=== PATIENT | female | born 1935 | race Caucasian/White ===

== ENCOUNTER 2018-08-12 11:54 | Emergency (ER) | payer MEDICARE, OTHER ==
[~2018-08-12] VITALS: Ht 172.7 cm; Wt 65.8 kg
[2018-08-12] MEDS ORDERED: NAMENDA XR28 MG PO (12:09)
[2018-08-12] MEDS ORDERED: XARELTO20 MG PO (12:10)
[2018-08-12] MEDS ORDERED: ESCI10 PO (12:10)
[2018-08-12] MEDS ORDERED: METO25ER PO (12:10)
[2018-08-12 12:41] LABS: BASOPHILS ABSOLUTE AUTO 0.03 K/mm3 (0.00-0.23); BASOPHILS PERCENT AUTO 1 % (0-2); EOSINOPHILS ABSOLUTE AUTO 0.14 K/mm3 (0.00-0.68); EOSINOPHILS PERCENT AUTO 3 % (0-6); Hematocrit 39.8 % (33.0-51.0); Hemoglobin 12.8 g/dL (11.5-16.0); IMMATURE GRAN ABSOLUTE AUTO 0.03 K/mm3 (0.00-0.10); IMMATURE GRAN PERCENT AUTO 1 % (0-1); LYMPHOCYTES ABSOLUTE AUTO 1.04 K/mm3 (0.84-5.20); LYMPHOCYTES PERCENT AUTO 21 % (21-46); MONOCYTES PERCENT AUTO 12 % (4-13); Mean Corpuscular HGB 28.6 pg (26.0-34.0); Mean Corpuscular HGB Conc 32.2 g/dL (31.5-36.5); Mean Corpuscular Volume 89 fL (80-100); Mean Platelet Volume 10.9 fL (9.1-12.4); NEUTROPHILS ABSOLUTE AUTO 3.02 K/mm3 (1.96-9.15); NEUTROPHILS PERCENT AUTO 62 % (41-73); Platelet Count 205 K/mm3 (150-400); RDW Coefficient Variation 13.8 % (11.7-14.2); Red Blood Cell Count 4.48 M/mm3 (3.80-5.20); White Blood Cell Count 4.86 K/mm3 (4.00-11.30)
[2018-08-12 13:01] LABS: Alanine Aminotransfer (ALT/SGP 24 U/L (12-78); Albumin, Blood 3.4 g/dL (3.4-5.0); Albumin/Globulin Ratio 1.1 (0.8-1.8); Alk Phos 85 U/L (50-136); Anion Gap 6 mmol/L (6-16); Aspartate Aminotrans (AST/SGOT 18 U/L (12-37); Bilirubin, Total 0.4 mg/dL (0.1-1.0); Blood Urea Nitrogen 16 mg/dL (8-24); Bun/Creatinine Ratio 16.3 (12.0-20.0); CO2, Blood 29 mmol/L (21-32); Calcium, Blood 8.5 mg/dL (8.5-10.1); Chloride, Blood 110 mmol/L (98-108); Creatinine, Blood 0.98 mg/dL (0.40-1.00); Glomerular Filtration Rate 57 (60-); Glucose, Blood 88 mg/dL (70-99); Sodium, Blood 145 mmol/L (136-145); Total Protein, Blood 6.4 g/dL (6.4-8.2); Troponin I <0.015 ng/mL (0.000-0.040)
[2018-08-12 13:56] LABS: Appearance, Urine Clear (Clear); Bilirubin, Urine Neg (Neg); Blood, Urine 1+ (Neg); Color, Urine Yellow (P-Yellow); Glucose Qualitative, Urine Neg (Neg); Ketones, Urine Neg (Neg); Leukocyte Esterase, Urine 1+ (Neg); Nitrite, Urine Neg (Neg); Protein, Urine Neg (Neg); Specific Gravity, Urine 1.015 (1.003-1.022); Urobilinogen, Urine NORM (Normal)
[2018-08-12 14:09] LABS: Bacteria Rare /hpf; Red Blood Cells, Urine 0-2 /hpf (0-2); Squamous Epithelial Cells Rare /hpf (Few)
[2018-08-12] MEDS ORDERED: Bactrim Ds Tab1 EACH PO (14:11)
== END 2018-08-12 14:36 | disposition home or self-care (01) ==
LOC: ER 11:54
PROVIDERS: Emergency Medicine; Internal Medicine
DX: R55 Syncope and collapse (principal); N39.0 Urinary tract infection, site not specified; I48.91 Unspecified atrial fibrillation; E86.0 Dehydration; F03.90 Unspecified dementia, unspecified severity, without behavioral disturbance, psychotic disturbance, mood disturbance, and anxiety; Z79.899 Other long term (current) drug therapy
CPT/HCPCS: 71046; 80053; 81001; 84484; 85025; 87086; 93005; 93010; 96360; 99284-25; J7030

== ENCOUNTER → 2018-11-20 | Outpatient (CLI) | payer MEDICARE, OTHER ==
[~2018-11-20] MED LIST: Bactrim Ds Tab1 EACH PO; ESCI10 PO; MEMA10 PO; METO25ER PO; NAMENDA XR28 MG PO; XARELTO20 MG PO
== END | disposition home or self-care (01) ==
LOC: LAB SHORT 11:55 → LAB 11:55
DX: R30.0 Dysuria (principal)
CPT/HCPCS: 87086

== ENCOUNTER 2019-07-20 12:36 | Emergency (ER) | payer MEDICARE, OTHER ==
[~2019-07-20] VITALS: Ht 172.7 cm; Wt 70.8 kg
[2019-07-20 13:15] LABS: BASOPHILS ABSOLUTE AUTO 0.02 K/mm3 (0.00-0.23); BASOPHILS PERCENT AUTO 1 % (0-2); EOSINOPHILS ABSOLUTE AUTO 0.07 K/mm3 (0.00-0.68); EOSINOPHILS PERCENT AUTO 2 % (0-6); Hematocrit 40.6 % (33.0-51.0); IMMATURE GRAN ABSOLUTE AUTO 0.01 K/mm3 (0.00-0.10); IMMATURE GRAN PERCENT AUTO 0 % (0-1); LYMPHOCYTES ABSOLUTE AUTO 1.03 K/mm3 (0.84-5.20); LYMPHOCYTES PERCENT AUTO 25 % (21-46); MONOCYTES ABSOLUTE AUTO 0.41 K/mm3 (0.16-1.47); MONOCYTES PERCENT AUTO 10 % (4-13); Mean Corpuscular HGB 28.3 pg (26.0-34.0); Mean Corpuscular Volume 89 fL (80-100); NEUTROPHILS ABSOLUTE AUTO 2.57 K/mm3 (1.96-9.15); NEUTROPHILS PERCENT AUTO 63 % (41-73); Platelet Count 192 K/mm3 (150-400); RDW Coefficient Variation 13.8 % (11.7-14.2); RDW Standard Deviation 44.8 fL (35.1-46.3); Red Blood Cell Count 4.59 M/mm3 (3.80-5.20); White Blood Cell Count 4.11 K/mm3 (4.00-11.30)
[2019-07-20 13:35] LABS: Alanine Aminotransfer (ALT/SGP 18 U/L (12-78); Albumin, Blood 3.7 g/dL (3.4-5.0); Albumin/Globulin Ratio 1.2 (0.8-1.8); Alk Phos 120 U/L (50-136); Anion Gap 8 mmol/L (6-16); Aspartate Aminotrans (AST/SGOT 15 U/L (12-37); Bilirubin, Total 0.5 mg/dL (0.1-1.0); Blood Urea Nitrogen 21 mg/dL (8-24); CO2, Blood 27 mmol/L (21-32); Calcium, Blood 8.6 mg/dL (8.5-10.1); Chloride, Blood 106 mmol/L (98-108); Creatinine, Blood 0.78 mg/dL (0.40-1.00); Glomerular Filtration Rate >60 (60-); Glucose, Blood 116 mg/dL (70-99); Sodium, Blood 141 mmol/L (136-145); Total Protein, Blood 6.7 g/dL (6.4-8.2)
[2019-07-20] MEDS ORDERED: DULO30 PO (13:41)
[2019-07-20 14:19] LABS: Source, Urine Clean Catch
[2019-07-20 14:26] LABS: Appearance, Urine Clear (Clear); Bilirubin, Urine Neg (Neg); Blood, Urine 1+ (Neg); Color, Urine Yellow (P-Yellow); Glucose Qualitative, Urine Neg (Neg); Ketones, Urine 1+ (Neg); Leukocyte Esterase, Urine Neg (Neg); Nitrite, Urine Neg (Neg); Protein, Urine Neg (Neg); Urobilinogen, Urine NORM (Normal); pH, Urine 6.5 (5.0-8.0)
[2019-07-20 14:35] LABS: Bacteria Mod /hpf; Red Blood Cells, Urine 0-2 /hpf (0-2); Squamous Epithelial Cells Rare /hpf (Few); White Blood Cells, Urine 0-2 /hpf (0-5)
== END 2019-07-20 15:11 | disposition home or self-care (01) ==
LOC: ER 12:36
PROVIDERS: Physician Assistant
DX: R55 Syncope and collapse (principal); E86.9 Volume depletion, unspecified; I48.2 Chronic atrial fibrillation; F03.90 Unspecified dementia, unspecified severity, without behavioral disturbance, psychotic disturbance, mood disturbance, and anxiety; Z79.899 Other long term (current) drug therapy
CPT/HCPCS: 36415; 70450; 80053; 81001; 84484; 85025; 87086; 93005; 93010; 99284-25; J7120; P9612

== ENCOUNTER → 2024-07-10 | Outpatient (CLI) | payer MEDICARE, OTHER ==
[~2024-07-10] MED LIST changes: +DULO30 PO
[2024-07-10 12:18] LABS: Source, Urine Voided
[2024-07-10 13:19] LABS: Appearance, Urine Clear (Clear); Bilirubin, Urine Neg (Neg); Blood, Urine Neg (Neg); Color, Urine Yellow (P-Yellow); Glucose Qualitative, Urine Neg (Neg); Ketones, Urine Neg (Neg); Leukocyte Esterase, Urine 3+ (Neg); Nitrite, Urine Neg (Neg); Protein, Urine 1+ (Neg); Specific Gravity, Urine 1.015 (1.003-1.022); Urobilinogen, Urine NORM (Normal)
[2024-07-10 13:37] LABS: Bacteria Few /hpf; Red Blood Cells, Urine 0-2 /hpf (0-2); Squamous Epithelial Cells Few /hpf (Few)
== END ==
LOC: LAB 12:13 → LAB SHORT 12:13
PROVIDERS: Family Medicine
DX: N39.0 Urinary tract infection, site not specified (principal)
CPT/HCPCS: 81001; 87086

== ENCOUNTER 2024-08-13 08:03 | Observation (INO) | payer MEDICARE, OTHER ==
[~2024-08-13] VITALS: Ht 165.1 cm; Wt 56.0 kg
[2024-08-13 08:19] LABS: BASOPHILS ABSOLUTE AUTO 0.04 K/mm3 (0.00-0.23); BASOPHILS PERCENT AUTO 1 % (0-2); EOSINOPHILS ABSOLUTE AUTO 0.23 K/mm3 (0.00-0.68); EOSINOPHILS PERCENT AUTO 4 % (0-6); Hematocrit 41.1 % (33.0-51.0); Hemoglobin 13.4 g/dL (11.5-16.0); IMMATURE GRAN ABSOLUTE AUTO 0.02 K/mm3 (0.00-0.10); IMMATURE GRAN PERCENT AUTO 0 % (0-1); LYMPHOCYTES ABSOLUTE AUTO 1.67 K/mm3 (0.84-5.20); LYMPHOCYTES PERCENT AUTO 30 % (21-46); MONOCYTES ABSOLUTE AUTO 0.71 K/mm3 (0.16-1.47); MONOCYTES PERCENT AUTO 13 % (4-13); Mean Corpuscular HGB 28.9 pg (26.0-34.0); Mean Corpuscular HGB Conc 32.6 g/dL (31.5-36.5); Mean Corpuscular Volume 89 fL (80-100); Mean Platelet Volume 11.6 fL (9.1-12.4); NEUTROPHILS ABSOLUTE AUTO 2.86 K/mm3 (1.96-9.15); NEUTROPHILS PERCENT AUTO 52 % (41-73); Platelet Count 192 K/mm3 (150-400); RDW Coefficient Variation 14.6 % (11.7-14.2); RDW Standard Deviation 48.3 fL (35.1-46.3); Red Blood Cell Count 4.64 M/mm3 (3.80-5.20); White Blood Cell Count 5.53 K/mm3 (4.00-11.30)
[2024-08-13 08:34] LABS: International Normalized Ratio 1.03
[2024-08-13 09:10] LABS: Albumin, Blood 3.4 g/dL (3.4-5.0); Albumin/Globulin Ratio 1.1 (0.8-1.8); Bilirubin, Total 0.6 mg/dL (0.1-1.0); Bun/Creatinine Ratio 24.5 (12.0-20.0); Calcium, Blood 8.7 mg/dL (8.5-10.1); Creatinine, Blood 0.82 mg/dL (0.40-1.00); Globulin, Blood 3.1 g/dL (2.2-4.0); Total Protein, Blood 6.5 g/dL (6.4-8.2)
[2024-08-13] MEDS ORDERED: LORazepam 2 MG/ML 1ML Injection IV ONE (09:30)
[2024-08-13] MEDS ORDERED: Magnesium Hydroxide Conc 10 ML UDC PO PRN (10:05)
[2024-08-13] MEDS ORDERED: Acetaminophen 325 MG TABLET PO PRN (10:05)
[2024-08-13] MEDS ORDERED: FLU VACC TS2024-25(6MOS UP)/PF 45 MCG/0.5 ML SYRINGE IM SCH (10:05)
[2024-08-13] MEDS ORDERED: Ondansetron HCl 2 MG / ML 2ML Vial IV PRN (10:05)
[2024-08-13] MEDS ORDERED: NS 1,000 ML IV SCH (10:05)
[2024-08-13 12:18] VITALS: BP 140/100
[2024-08-13] MEDS ORDERED: LORazepam 2 MG/ML 1ML Injection IV PRN ×2 (12:25→14:40)
--- NOTE | 2024-08-13 13:59 | NUR ---
PHYSICIAN CONTACT: ESTEFANY FROM TELE CALLED @ [id number] STATING PT IS HAVING RUNS OF POLYMORPHIC VTACH. CALLED AND SPOKE WITH DR. RONDON TO MAKE AWARE.
--- NOTE | 2024-08-13 14:11 | NUR ---
PRIMARY RN ASKED THIS PC RN TO SEE PT D/T AGGITATION, LACK OF GAG REFLEX AND STOKE SYMPTOMS. MESSAGES LEFT FOR PT'S SON AND DIL.
[2024-08-13] MEDS ORDERED: Seroquel25 MG PO (14:22)
[2024-08-13] MEDS ORDERED: Promethazine HCl 25 MG Supp PR PRN (14:40)
[2024-08-13] MEDS ORDERED: Scopolamine Hydrobromide Patch TOP PRN (14:40)
[2024-08-13] MEDS ORDERED: Acetaminophen 650 MG Supp PR PRN (14:40)
[2024-08-13] MEDS ORDERED: Morphine Sulfate 20 MG/1ML 1 ML Oral Syringe SL PRN (14:40)
[2024-08-13] MEDS ORDERED: Atropine Sulfate 1% Opth Soln 2ML BTL SL PRN (14:40)
[2024-08-13] MEDS ORDERED: Haloperidol Lactate Inj. 5 MG/ML Injection IV PRN (14:40)
--- NOTE | 2024-08-13 14:52 | NUR ---
START COMFORT CARE NOW PT LIKES TO BE ADDRESSED "MIKAYLA". THIS PC RN SPOKE WITH FAMILY (SON/MERLIN) BY PHONE. BOTH OF WHOM ARE IN AGREEMENT TO CHANGE PT'S GOALS OF CARE TO COMFORT. COMFORT CARE ORDERS RCV'D BY . ORDERS PLACED ACCORDINGLY. PRIMARY RN AND BROACH TROUBLE SHOOTER NOTIFIED. VIKRAM BOYER IS ON HER WAY BACK TO THE HOSPITAL. SONRAMYA IS STRUGGLING WITH PT'S PENDING MORTALITY. PT'S SPOUSE PASSED 2 MONTHS AGO. OFFERED A BELT CUTTER VISIT TO FAMILY. THE WERE VERY WELCOMING AND ASKED FOR BELT CUTTER SISSY BY NAME HE IS KNOWN TO THE FAMILY. PC TO REMAIN AVAILABLE.
--- NOTE | 2024-08-13 16:31 | NUR ---
"SPiritual Care | Comfort Care visit. Pt. is on comfort care and is mostly not responsive. Daughter and granddaughter are at bedside and are familiar with this sander and buffer from when the Pts. passed earlier in the summer. Pastoral care and prayer is given for both the Pt. and family. Facilitated lengthy life reviews. Pts. nurse arrived to get her cleaned up. This sander and buffer steped out but will remain available to the Pt. and family."
--- NOTE | 2024-08-13 17:19 | NUR ---
PATIENT ADMITTED TODAY FOR CVA. R SIDE FLACCID WITH R FACIAL DROOP. PATIENT NOVERABL AND DOES NOT TRACK WITH HER EYES. TRANSITIONED TO COMFORT MEASURES THIS AFTERNOON. FAMILY AT BEDSIDE AND ARE VERY SUPPORTIVE. PALLIATIVE CARE AND CANVAS WORKER JUAN CARLOS AT BEDSIDE TO VISIT WITH FAMILY WELL. ATIVAN GIVEN X2 TODAY FOR AGITATION WITH GOOD RELIEF.
--- NOTE | 2024-08-13 18:36 | NUR ---
"Spiritual Care Visit | Comfort Care - EOL Decisions Pt. is on comfort care. Pts. daughter and granddaughter are present. Facilitated conversation about end of life decision for the Pt. The family has chosen [facility] as the home when the Pt. passes."
[2024-08-13] MEDS ORDERED: Famotidine 10 MG/ML 2ML Vial IV SCH (21:00)
--- NOTE | 2024-08-14 06:30 | NUR ---
WARES SORTER SUMMARY ABLE TO MAINTAIN PT COMFORT WITH CURRENT AVAILABLE INTERVENTIONS. WHEN HER LORAZEPAM AND ROXANOL WEAR OFF SHE MOANS, GRIMACES AND STARTS TO FIDGET. HER FAMILY WENT HOME TO SLEEP. LISET PLACED FOR COMFORT. PT TURNED AND MOUTH MOISTURIZED EVERY 2 HOURS.
[2024-08-14] MEDS ORDERED: Aspirin 81 MG Chew PO SCH (09:00)
[2024-08-14] MEDS ORDERED: Clopidogrel Bisulfate 75 MG Tab PO SCH (09:00)
[2024-08-14] MEDS ORDERED: Enoxaparin 40 MG/0.4 ML SYR SC SCH (09:00)
--- NOTE | 2024-08-14 10:25 | NUR ---
CALLED AND GAVE UPDATE TO PATIENT'S DAUGHTER AILYN
--- NOTE | 2024-08-14 11:20 | NUR ---
"Spiritual Care Visit | Comfort Care Pt. is on comfort care and is mostly non-responsive. No family members are present. Prayed for the Pt. Will remain available to the family as the Pt. continues to transition."
--- NOTE | 2024-08-14 18:06 | NUR ---
SHIFT SUMMARY: PATIENT HAS REMAINED NON REPONSIVE; DOES NOT OPEN HER EYES OR SPEAK. WHEN SHE BECOMES RESTLESS SHE WILL MOAN AND SQUIRM AND BRING HER LEFT EXTREMITY UP TO HER FACE. RESPOSITIONING PATIENT EVERY 2 HOURS, PROVIDING ORAL CARE, AND MEDICATING NEEDED FOR COMFORT. PATIENT DOES NOT APPEAR IMMENENT AND NOT OBTUNDED. THE [facility] CAME BY AND SAW THE PATIENT TODAY AND SAID THAT THEY WOULD TAKE HER BACK [facility]. POSSIBLE D/C TOMORROW 08/15/24. PLAN OF CARE ONGOING.
--- NOTE | 2024-08-15 05:51 | NUR ---
SHIFT SUMMARY: Pt admitted for CVA and is a DNR. has been unresponsive during shift. Is on comfort care. ADLs have been 2p. Have not noted any SX of pain. Have been given medication for some air hunger. Folly in place and draining clear yellow urine.
--- NOTE | 2024-08-15 10:57 | NUR ---
PATIENT'S DAUGHTER VIKRAM CALLED; GAVE HER AN UPDATE ON THE PATIENT. NO CHANGES WITH PATIENT CONDITIONS AT THIS TIME. VIKRAM EXPRESSED CONCERNS WITH THE PATIENT RETURNING TO [facility] DUE TO LACK OF CARE SHE WAS GETTING PRIOR TO THIS HOSPITAL STAY AND THAT SHE FEELS THAT THE PATIENT IS GETTING BETTER CARE HERE. VIKRAM HAD ASKED THIS RN IF I WAS INCREASING HER SEDATIVES. I LET VIKRAM KNOW THAT I AM MEDICATING THE PATIENT NEEDED WITH WHAT IS ORDERED BASED OFF MY ASSESSMENT AND OBSERVATIONS ON PATIENT'S CONDITION. VIKRAM VOICES UNDERSTANDING. SHE REQUEST TO SPEAK WITH NURSE BALANCE SHEET ANALYST GABRIELA. GABRIELA NOTIFIED TO CONTACT VIKRAM.
--- NOTE | 2024-08-15 15:54 | NUR ---
ASSESSED PATIENTS COMFORT. SHE WAS SLEEPING IN BED DISCUSSED WITH BEDSIDE RN. PATIENT HAS BEEN REQUIRING REGULAR DOSES OF ROXANOL. SHE WAS ASLEEP AND DIFFICULT TO ARROUSE DURING MY ASSESSMENT. SHE APPEARED COMFORTABLE AT THIS TIME. FLACC SCALE 3-4 AT THIS TIME. SHE IS COOL TO THE TOUCH.
--- NOTE | 2024-08-15 16:44 | NUR ---
"Spiritual Care | Comfort care follow up. Pt. is on comfoart care and is not responsive. The Pt. displays evidence of lingering during this transition phase. There are no family present. Prayed for the Pt. Will continue to support Pt. and family."
--- NOTE | 2024-08-15 17:53 | NUR ---
SHIFT SUMMARY: PATIENT'S CHEEKS ARE MORE FLUSHES AND BREATHING MOIST AND RATTLED. OTHERWISE NO CHANGES WITH PATIENT; GIVEN MEDICATIONS NEEDED. PENDING DISCHARGE TO [facility]. PLAN OF CARE ONGOING.
--- NOTE | 2024-08-16 11:50 | NUR ---
"Spiritual Care | Comfort Care Check-in Pt. is on comfort care. The Staff are giving the Pt. a bath. Pt. displays evidence of wet breaths. Will remain available to Pt. and nursing staff."
--- NOTE | 2024-08-16 12:38 | NUR ---
"Spiritual Care | Palliative Nurse request Pt. is alone on comfort care and does not meaningfully respond to my presence. Nurse Arielle requested spiritual care for the Pt. whose time seems near. Scripture is read, and blessings are given. Will remain available to the Pt. and family."
--- NOTE | 2024-08-16 14:33 | NUR ---
"Spiritual Care | Family at bedside Pt. is on comfort care and displays evidence of continued transitioning. MERLIN Bean is at bedside and displays evidence of emotion and concern for the Pts. condition. Normalized the Pt. and family experience. Updated the MERLIN on observations from earlier in the day. MERLIN said her goodbyes and verbalized that she did not intend to return. After the visit I updated nurse Amelia who will notify this electrical tester should the Pt. pass."
--- NOTE | 2024-08-16 15:11 | NUR ---
PT PASSED UPON ENTERING THE PTS ROOM AT 1510 IT WAS NOTICED THAT THE PT WAS . CHARGE NURSE ANN-MARIE WAS CALLED AND VERIFIED THE . DR. GREWAL WAS NOTIFIED
--- NOTE | 2024-08-16 15:26 | NUR ---
"Spiritual Care| EOL This shop tailor visited Pt. upon being notified of the Pts. passing. This shop tailor will follow up the visit with a pastoral call to family."
== END 2024-08-16 15:10 ==
LOC: ER 08:03 → MEDS 08:04 → ER 11:55 → MEDS 12:00 → ENPENDDIS 08-16 12:17 → MEDS 08-16 15:10
PROVIDERS: Emergency Medicine; ADMIT Family Medicine
DX: I63.9 Cerebral infarction, unspecified (principal); G30.9 Alzheimer's disease, unspecified; F02.80 Dementia in other diseases classified elsewhere, unspecified severity, without behavioral disturbance, psychotic disturbance, mood disturbance, and anxiety; I10 Essential (primary) hypertension; I48.91 Unspecified atrial fibrillation; E78.5 Hyperlipidemia, unspecified; F32.A Depression, unspecified; M54.16 Radiculopathy, lumbar region; M81.0 Age-related osteoporosis without current pathological fracture; H54.7 Unspecified visual loss; M85.80 Other specified disorders of bone density and structure, unspecified site; M16.10 Unilateral primary osteoarthritis, unspecified hip; Z51.5 Encounter for palliative care; Z79.899 Other long term (current) drug therapy; Z79.01 Long term (current) use of anticoagulants; Z88.8 Allergy status to other drugs, medicaments and biological substances
CPT/HCPCS: 51702; 70450; 70496; 70498; 71045; 80053; 85025; 85610; 93005; 93010; 94760; 96374-59; 96376; 99285-25; A9270; G0378; J2060; Q9967